=== PATIENT | female | born 1955 | race Two or more races ===

== ENCOUNTER 2018-02-12 10:32 | Emergency (ER) | payer OTHER ==
[~2018-02-12] VITALS: Ht 147.3 cm; Wt 67.0 kg
[~2018-02-12 10:32] MED LIST: BLOOD PRESSURE; CHOLESTEROL; DIABETIC MED
[2018-02-12 10:34] VITALS: BP 153/85
== END 2018-02-12 11:30 | disposition home or self-care (01) ==
LOC: ED 11:15
DX: B37.9 Candidiasis, unspecified (principal); E11.9 Type 2 diabetes mellitus without complications; I10 Essential (primary) hypertension
CPT/HCPCS: 99283